=== PATIENT | male | born 1995 | race Caucasian/White ===

== ENCOUNTER 2018-08-21 18:39 | Emergency (ER) | payer MEDICAID ==
[2018-08-21] MEDS: HYDROCODONE/APAP (5/325) TAB PO (19:45)
== END 2018-08-21 21:04 | disposition home or self-care (01) ==
LOC: FTE 18:39
DX: S00.83XA Contusion of other part of head, initial encounter (principal); W18.39XA Other fall on same level, initial encounter; Y92.9 Unspecified place or not applicable
CPT/HCPCS: 70450; 72125; 99284-25